=== PATIENT | female | born 1955 | race Caucasian/White ===

== ENCOUNTER 2022-11-28 13:04 | Outpatient (CLI) | payer MEDICARE, SELFPAY | END 2022-11-28 13:05 | disposition home or self-care (01) | LOC: NFLDREF 12-01 11:27 | PROVIDERS: PCP Nurse Practitioner Family; Referring Provider Nurse Practitioner Family; Visit Provider Nurse Practitioner Family | DX: R73.9 Hyperglycemia, unspecified (principal); I10 Essential (primary) hypertension; E11.9 Type 2 diabetes mellitus without complications | CPT/HCPCS: 87086 ==

== ENCOUNTER 2022-12-14 09:37 | Outpatient (CLI) | payer MEDICARE, SELFPAY | END 2022-12-14 09:38 | disposition home or self-care (01) | PROVIDERS: PCP Physician Assistant Medical; Visit Provider Physician Assistant Medical | DX: E11.9 Type 2 diabetes mellitus without complications (principal); I10 Essential (primary) hypertension; R73.9 Hyperglycemia, unspecified | CPT/HCPCS: 80061; 82043; 82570; 82607 ==

== ENCOUNTER 2023-04-04 14:45 | Outpatient (CLI) | payer OTHER, SELFPAY | END 2023-04-04 14:46 | disposition home or self-care (01) | LOC: LKVREF 14:45 | PROVIDERS: PCP Physician Assistant Medical; Visit Provider Physician Assistant Medical | DX: E11.9 Type 2 diabetes mellitus without complications (principal); E78.5 Hyperlipidemia, unspecified | CPT/HCPCS: 82607 ==

== ENCOUNTER 2024-09-22 15:38 | Emergency (ER) | payer MEDICARE, SELFPAY ==
[2024-09-22 15:49] VITALS: BP 214/80; PULSE 76; RESP 16; TEMP 36; O2SAT 98; BMI 33.3
--- NOTE | 2024-09-22 17:47 | ED_ITS ---
HPI - General Adult General Chief complaint: Hypertension Stated complaint: High BP 220/91 Time Seen by Provider: 09/22/24 17:35 Source: patient Mode of arrival: ambulatory Limitations: no limitations History of Present Illness HPI narrative: 69-year-old female with history of hypertension, untreated, told to come to the emergency department for elevated blood pressures. Mary Lou is a anuel 69-year-old female with history of high blood pressure. She has tried lisinopril in the past she believes 1-2 years ago and made her feel very weak so she stopped taking it. At the time, she was diagnosed with type 2 diabetes. She states that without treatment over the last year her blood pressures have been 140s to 160s consistently. In the last 2 weeks they have been 190s to 220. She denies headache, changes in her vision or hearing, chest pain or shortness of breath. She denies difficulty with urination, chest or abdominal pain. She denies diaphoresis or changes in her appetite. She checked her blood pressure today and it was 220/100 and she was instructed to come to the emergency room for evaluation. She is currently not on any antihypertensives. States that she has only try lisinopril in the past. Related Data Home Medications ?Medication ?Instructions ?Recorded ?Confirmed benfotiamine PO 09/22/24 Previous Rx's ?Medication ?Instructions ?Recorded blood sugar diagnostic (Blood #100 ea 11/30/22 Glucose Test strips) blood-glucose meter (Blood Glucose #1 ea 11/30/22 Monitoring kit) lancets 30 gauge (E-Z Ject Lancets) #200 ea 11/30/22 atorvastatin 20 mg tablet 20 mg PO QDAY #90 tabs 04/04/23 metformin 500 mg tablet 1,000 mg (2 x 500 mg) PO BIDWMEAL 08/13/23 #360 tabs hydrochlorothiazide 25 mg tablet 25 mg PO DAILY #30 tabs 09/22/24 Allergies Allergy/AdvReac Type Severity Reaction Status Date / Time codeine Allergy Severe Verified 09/22/24 15:10 Review of Systems Status of ROS: Reports: 10 or more systems reviewed and unremarkable except as noted in History and below PFS PFS Medical History Hyperglycemia ?R73.9 - Hyperglycemia, unspecified (ICD-10) Social History Smoking Status: Former smoker Exam Narrative: Exam Narrative: Well-nourished well-developed patient in no acute distress. Alert and oriented. Answers questions appropriately. Mood and affect are appropriate. Thoughts are goal oriented and rational. No tangential or magical thinking noted. Patient speaks in full sentences without needing to catch her breath. She does not appear ill or toxic. Blood pressure is elevated at 2 14/80. HEENT: Normocephalic atraumatic. Pupils are equally round reactive to light. Extraocular muscles are intact. Conjunctivae are moist without any icterus noted. Moist mucous membranes. Cardiovascular: Heart is regular rate and rhythm S1 and S2 are present without any murmurs. Lungs: Clear to auscultation bilaterally no wheezes rhonchi or rales are appreciated. Patient takes deep breaths without any discomfort. Extremities: Bilateral lower extremities are without edema. Skin: Well perfused without any obvious rashes. Const: Vital Signs, click to edit/add: Vital Signs - 24 hr 09/22/24 15:49 Temperature 96.8 F L Pulse Rate [Pulse Oximeter] 76 Respiratory Rate 16 Blood Pressure [Ri ght Upper Arm] 214/80 H Pulse Oximetry 98 Oxygen Delivery Me thod Room Air Course Vital Signs Vital signs: Initial Vital Signs Temperature 96.8 F L 09/22/24 15:49 Temperature Source Temporal Artery Scan 09/22/24 15:49 Pulse Rate 76 09/22/24 15:49 Respiratory Rate 16 09/22/24 15:49 Blood Pressure 214/80 H 09/22/24 15:49 Blood Pressure Mean 124 H 09/22/24 15:49 Blood Pressure Position Sitting 09/22/24 15:49 Pulse Oximetry 98 09/22/24 15:49 Oxygen Delivery Method Room Air 09/22/24 15:49 Vital Signs Temperature 96.8 F L 09/22/24 15:49 Pulse Rate 76 09/22/24 15:49 Respiratory Rate 16 09/22/24 15:49 Blood Pressure 214/80 H 09/22/24 15:49 Pulse Oximetry 98 09/22/24 15:49 Oxygen Delivery Method Room Air 09/22/24 15:49 Temperature 96.8 F L 09/22/24 15:49 Pulse Rate 76 09/22/24 15:49 Respiratory Rate 16 09/22/24 15:49 Blood Pressure 214/80 H 09/22/24 15:49 Pulse Oximetry 98 09/22/24 15:49 Oxygen Delivery Method Room Air 09/22/24 15:49 Medical Decision Making MDM Narrative Medical decision making narrative: Asymptomatic 69-year-old female with untreated hypertension. Will start the pa tient hydrochlorothiazide. First dose given in the ED today. She will vegetable picker her prescription tomorrow continue a tablet daily. She has a follow-up appointment with her primary care provider on October 03 she is encouraged to keep that appointment and follow her blood pressures until then. We discussed that she will likely need to be a multiple blood pressure medications but starting them 1 at a time so she knows that she tolerates them given her reaction to meds in the past is a good idea. Discharge Plan Discharge Clinical Impression: Hypertension Patient Disposition: Home, Self-Care Condition: Stable Additional Instructions: Start hydrochlorothiazide 25 mg daily in the morning. Check your blood pressures once a day at different times during the day. Write those down bring them to your primary care doctor on October 03. You will likely need to be on multiple blood pressure medications. If you are having side effects to the hydrochlorothiazide, call your primary care provider. Prescriptions: New hydrochlorothiazide 25 mg tablet 25 mg PO DAILY Qty: 30 0RF No Action atorvastatin 20 mg tablet 20 mg PO QDAY Qty: 90 1RF Rx Instructions: Take 1 tablet daily, in the evening, for cholesterol benfotiamine PO (DME) blood-glucose meter [Blood Glucose Monitoring] Kit See Rx Instructions .Route Qty: 1 0RF Rx Instructions: twice daily for blood sugar (DME) Blood Glucose Test Strip See Rx Instructions .Route Qty: 100 3RF Rx Instructions: twice daily (DME) lancets [E-Z Ject Lancets] 30 gauge misc See Rx Instructions .Route Qty: 200 3RF Rx Instructions: twice daily blood sugar checks metformin 500 mg tablet 1,000 mg PO BIDWMEAL Qty: 360 3RF Rx Instructions: take two tablets twice daily with meals for diabetes Follow Up/Referrals: Germania Alatorre PA-C [Primary Care Provider] - Stand Alone Forms: [employer] Info Instructions
[2024-09-22] MEDS: hydroCHLOROthiazide 25 MG TABLET PO (18:04)
== END 2024-09-22 18:04 | disposition home or self-care (01) ==
LOC: ED 17:55
PROVIDERS: Emergency Provider Family Medicine; PCP Physician Assistant Medical
DX: I10 Essential (primary) hypertension (principal)
CPT/HCPCS: 99283; 99284; A9270